=== PATIENT | male | born 1945 | race Caucasian/White ===

== ENCOUNTER 2017-11-18 15:37 | Outpatient (CLI) | payer MEDICARE, BC ==
[2017-11-18 16:21] LABS: APPEARANCE,URINE CLEAR; KETONES,URINE NEGATIVE (NEGATIVE); LEUKOCYTE ESTERASE ,URINE NEGATIVE (NEGATIVE); NITRITE,URINE NEGATIVE (NEGATIVE); PH,URINE 6.5 (4.5-8.0); PROTEIN,URINE NEGATIVE (NEGATIVE); UROBILINOGEN,URINE NORMAL MG/DL (0.0-1.0)
[2017-11-18 16:27] LABS: MEAN CORPUSCULAR HEMOGLOBIN 28.8 PG (27.0-31.0); MEAN CORPUSCULAR HGB CONC 31.1 G/DL (32.0-36.0); MEAN CORPUSCULAR VOLUME 93 FL (80-99); MEAN PLATELET VOLUME 6.8 FL (6.5-10.1); PLATELET COUNT 452 K/UL (150-450); RED BLOOD COUNT 5.31 M/UL (4.70-6.10); WHITE BLOOD COUNT 14.9 K/UL (4.8-10.8)
[2017-11-18 16:35] LABS: BACTERIA,URINE OCCASIONAL /HPF; RBC,URINE 0-2 /HPF (0 - 0); SQUAMOUS EPITHELIAL CELL,UR OCCASIONAL /LPF (NONE/OCC); WBC,URINE 0-2 /HPF (0 - 0)
--- NOTE | 2017-11-18 16:40 | Diagnostic Imaging Report ---
Indication: Chest pain. Preop. Technique: XRAY Chest 1v Comparison: None Findings: Heart size within normal limits. Mediastinal contours are sharp. The thoracic aorta is mildly tortuous. There is no focal airspace consolidation, pleural effusion or pneumothorax. There are symmetric 8 mm nodular densities projecting over the bilateral lower lungs which most likely represent nipple shadows. No acute osseous abnormality is seen. Impression: No radiographic evidence of acute cardiopulmonary disease. Symmetric 8mm nodular densities projecting over the bilateral lower lungs most likely represent nipple shadows. Repeat exam with nipple markers in place recommended for definitive assessment.
[2017-11-18 16:44] LABS: PROTHROMBIN TIME 10.6 SEC (9.30-11.50)
[2017-11-18 16:49] LABS: ALANINE AMINOTRANSFERASE 79 U/L (12-78); ALBUMIN/GLOBULIN RATIO 0.8 (1.0-2.7); ANION GAP 10 mmol/L (5-15); ASPARTATE AMINO TRANSFERASE 57 U/L (15-37); CALCIUM 8.8 MG/DL (8.5-10.1); CARBON DIOXIDE 28 MMOL/L (21-32); CHLORIDE 101 MMOL/L (98-107); CREATININE 1.4 MG/DL (0.55-1.30); POTASSIUM 4.3 MMOL/L (3.5-5.1); SODIUM 139 MMOL/L (136-145); TOTAL PROTEIN 8.5 G/DL (6.4-8.2)
[2017-11-18 17:17] LABS: BAND NEUTROPHILS % (MANUAL) 0 % (0-8); BASOPHILS % (MANUAL) 0 % (0-2); EOSINOPHILS % (MANUAL) 0 % (0-3); LYMPHOCYTES % (MANUAL) 8 % (20-45); NEUTROPHILS % (MANUAL) 87 % (45-75); PLATELET ESTIMATE INCREASED; PLATELET MORPHOLOGY NORMAL; TOTAL CELLS COUNTED 100
--- NOTE | 2017-11-20 15:08 | Cardiology Report ---
APPROVED REPORT EKG Measurement Heart [id number] Normal sinus rhythm Normal ECG
[2017-11-22] MEDS ORDERED: VALACYCLOVIR500 MG ORAL (14:30)
[2017-11-22] MEDS ORDERED: LIPITOR40 MG ORAL (14:31)
[2017-11-22] MEDS ORDERED: NORVASC10 MG ORAL (14:31)
[2017-11-22] MEDS ORDERED: ASPIR 8181 MG ORAL (14:59)
[2017-11-22] MEDS ORDERED: DIOVAN HCT 3201 EACH ORAL (15:00)
[2017-11-22] MEDS ORDERED: PERCOCET 5-3251 EACH ORAL (15:01)
[2017-11-22] MEDS ORDERED: PROSCAR5 MG ORAL (15:01)
== END 2017-11-18 17:37 | disposition home or self-care (01) ==
LOC: RAD 15:37
DX: Z01.818 Encounter for other preprocedural examination (principal); R07.9 Chest pain, unspecified
CPT/HCPCS: 36415; 71010; 80053; 81001; 85007; 85025; 85610; 85730; 93005

== ENCOUNTER 2017-11-23 06:19 | Observation (INO) | payer MEDICARE, BC ==
[~2017-11-23] VITALS: Ht 170.2 cm; Wt 81.6 kg
[2017-11-23] VITALS (18 sets, daily range): BP systolic 91–115; BP diastolic 44–73
[~2017-11-23 06:19] MED LIST: ASPIR 8181 MG ORAL; DIOVAN HCT 3201 EACH ORAL; LIPITOR40 MG ORAL; NORVASC10 MG ORAL; PERCOCET 5-3251 EACH ORAL; PROSCAR5 MG ORAL; VALACYCLOVIR500 MG ORAL
[2017-11-23] MEDS ORDERED: ceFAZolin sod 2 GM in D5W 110 ML IVPB ONE (07:00)
[2017-11-23] MEDS ORDERED: Isovue-M 300 15ml INJ ONE ×2 (07:03→07:22)
[2017-11-23] MEDS ORDERED: Dexamethasone 4mg/ml vial ONE (07:03)
[2017-11-23] MEDS ORDERED: Lidocaine 1% 10mg/ml/EPI 0.01mg/ml 50ml INJ ONE (07:03)
[2017-11-23] MEDS ORDERED: Zemuron 50mg/5ml Inj IV ONE (07:58)
[2017-11-23] MEDS ORDERED: Succinylcholine 20mg/ml 10ml vial ONE (07:58)
[2017-11-23] MEDS ORDERED: Sterile Water Irrig 1000ml IRRIG ONE (07:58)
[2017-11-23] MEDS ORDERED: Midazolam 2mg/2ml Inj ONE (07:58)
[2017-11-23] MEDS ORDERED: fentaNYL 100 mcg/2 mL IV ONE (07:58)
[2017-11-23] MEDS ORDERED: NS Irrig 1000ml ONE (07:58)
[2017-11-23] MEDS ORDERED: Propofol 200mg/20ml IV ONE (07:58)
[2017-11-23] MEDS ORDERED: Neostigmine 1mg/ml 10ml Inj ONE (07:58)
[2017-11-23] MEDS ORDERED: Glycopyrrolate 0.2mg/ml 1ml Vial ONE (07:58)
--- NOTE | 2017-11-23 08:29 | Pre-Procedure Note/Attestation ---
Pre-Procedure Note/Attestation Complete Prior to Procedure Procedure Narrative: L1 com[pression fx, intractable pain Indications for Procedure Pre-Operative Diagnosis: kyphoplasty Attestation I attest that I discussed the nature of the procedure; its benefits; risks and complications; and alternatives (and the risks and benefits of such alternatives ), prior to the procedure, with the patient (or the patient's legal client services representative). I attest that, if there was a reasonable possibility of needing a blood transfusion, the patient (or the patient's legal client services representative) was given the [facility] standardized written summary, pursuant to the [place] [employer] Blood Safety Act ([place] Health and Safety Code # 1645, as amended). I attest that I re-evaluated the patient just prior to the surgery and that there has been no change in the patient's H&P, except as documented below: FER ROMAN Nov 23, 2017 08:29
--- NOTE | 2017-11-23 08:30 | Brief Operative Note ---
Immediate Post Operative Note Operative Note Pre-op Diagnosis: L1 compression fx intractable pain Procedure: kyphoplasty Post-op Diagnosis: same as pre-op Surgeon: adina Anesthesiologist: bigg Anesthesia: general Specimen: none Complications: none Condition: stable Fluids: 600 Estimated Blood Loss: none Drains: none Implant(s) used?: Yes - pmma FER ROMAN Nov 23, 2017 08:30
[2017-11-23] MEDS ORDERED: LR 1000ml 1,000 ML IVLG SCH ×2 (09:11→09:45)
--- NOTE | 2017-11-23 09:11 | Anethesia Preoperative Eval ---
Anesthesia Pre-op PMH/ROS General Date of Evaluation: Nov 23, 2017 Time of Evaluation: 07:20 Anesthesiologist: Mane ASA Score: ASA 3 Mallampati Score Class I : Soft palate, uvula, fauces, pillars visible Class II: Soft palate, uvula, fauces visible Class III: Soft palate, base of uvula visible Class IV: Only hard plate visible Mallampati Classification: Class II Surgeon: Lam Diagnosis: L1 compression Fx Surgical Procedure: L 1 Kyphoplasty Anesthesia History: none Family History: no anesthesia problems Allergies: Coded Allergies: No Known Allergies (Unverified , 11/23/17) Past Medical History Cardiovascular: Reports: HTN, Denies: CAD, [place], valve dz, arrhythmia, other Pulmonary: Denies: asthma, COPD, ADAMARIS, other Gastrointestinal/Genitourinary: Reports: GERD, other - prostate CA, Denies: CRI, ESRD Neurologic/Psychiatric: Reports: depression/anxiety, Denies: dementia, CVA, TIA, other Endocrine: Denies: DM, hypothyroidism, steroids, other HEENT: Reports: cataract (L), cataract (R) - s/p Sx, Denies: glaucoma, [place] (L), [place] (R), other Hematology/Immune: Denies: anemia, DVT, bleeding disorder, other Musculoskeletal/Integumentary: Reports: DJD, Denies: OA, RA, DDD, edema, other PMH Narrative: as above PSxH Narrative: T&A Anesthesia Pre-op Phys. Exam Physician Exam Last Vital Signs Date Time Temp Pulse Resp B/P (MAP) Pulse Ox O2 Delivery O2 Flow Rate FiO2 11/23/17 06:52 98.5 90 20 115/73 98 Room Air Constitutional: NAD Neurologic: CN 2-12 intact Cardiovascular: RRR, no M/R/G Respiratory: CTA Gastrointestinal: S/NT/ND Airway Exam Mallampati Score: Class II MO: limited Neck: stiff ROM: limited Teeth: intact Dentures: no upper, no lower Anesthesia Pre-op A/P Labs see chart Studies Pre-op Studies: EKG - NSR Risk Assessment & Plan Assessment: ASA 3 Plan: GA with ETT prone position Status Change Before Surgery: No Pre-Antibiotics Drug: Ancef 2gr. Given Within 1 Hr of Incision: Yes Time Given: 07:52 JOSE JUAN WOOD M.D. Nov 23, 2017 09:11
[2017-11-23] MEDS ORDERED: DiphenhydrAMINE 50mg/ml Inj IVP PRN ×2 (09:15→10:00)
[2017-11-23] MEDS ORDERED: Hydromorphone 0.5mg/0.5ml inj IVP PRN (09:15)
[2017-11-23] MEDS ORDERED: Midazolam 2mg/2ml Inj IVP PRN ×2 (09:15→10:00)
[2017-11-23] MEDS ORDERED: Ketorolac 30mg Inj IV PRN ×2 (09:15→09:45)
[2017-11-23] MEDS ORDERED: Metoclopramide 10mg/2ml Inj IVP PRN ×4 (09:15→13:30)
[2017-11-23] MEDS ORDERED: D5 1/2NS 1,000 ML IV SCH ×2 (09:30→13:00)
[2017-11-23] MEDS ORDERED: Norco 5mg/325mg tab ORAL PRN ×2 (09:30→13:00)
[2017-11-23] MEDS ORDERED: HYDROmorphone 1mg/ml Carpuject SUBQ PRN ×2 (09:30→13:00)
[2017-11-23] MEDS ORDERED: Tylenol #3 tab (300mg/30mg) ORAL PRN ×2 (09:30→09:45)
--- NOTE | 2017-11-23 09:51 | Immediate Post-Op Evaluation ---
Immediate Post-Op Evalulation Immediate Post-Op Evalulation Procedure: L1 Kyphoplasty Date of Evaluation: Nov 23, 2017 Time of Evaluation: 09:50 IV Fluids: 800 Blood Products: none Estimated Blood Loss: min Urinary Output: none Blood Pressure Systolic: 96 Blood Pressure Diastolic: 58 Pulse Rate: 102 Respiratory Rate: 20 O2 Sat by Pulse Oximetry: 99 Temperature (Fahrenheit): 98.3 Pain Score (1-10): 2 Nausea: No Vomiting: No Complications NONE Patient Status: reacts, patent, extubated, none Hydration Status: adequate JOSE JUAN WOOD M.D. Nov 23, 2017 09:51
[2017-11-23] MEDS: Hydromorphone 0.5mg/0.5ml inj IVP PRN ×3 (09:59→10:22)
--- NOTE | 2017-11-23 13:51 | Diagnostic Imaging Report ---
Indication: Back pain. Vertebral fracture Comparison: None Findings: Fluoroscopic views of the lumbar spine were obtained. Fluoroscopically obtained images during kyphoplasty within what appears to be the upper part of the lumbar spine. IMPRESSION: Intraoperative imaging
--- NOTE | 2017-11-23 15:15 | Operative Note - Dictated ---
DATE OF OPERATION: 11/23/2017 SURGEON: Garfield Fritz M.D. [employer] AGENT: None. ANESTHESIOLOGIST: Michael Gilliam M.D. ANESTHESIA TYPE: General endotracheal anesthesia. PREOPERATIVE DIAGNOSIS: L1 compression fractures with intractable pain. POSTOPERATIVE DIAGNOSIS: L1 compression fractures with intractable pain. PROCEDURE: 1. Kyphoplasty L1. 2. Use of fluoroscopy. 3. Cement augmentation L1. 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 He was placed into a brace, but despite this had severe and intractable pain. Therefore, surgical intervention in the form of kyphoplasty was recommended. RISK NOTE: The patient was explained in detail the risks and benefits of procedure to include, but not be limited to those of bleeding, infection, damage to nerves, vessels, tendons, anesthetic risk, allergic reaction, aspiration, and possibly . The patient understood and wished to proceed. OPERATIVE PROCEDURE IN DETAIL: The patient was taken to the operative suite. After positive identification was made, general endotracheal anesthesia was induced. He was then turned prone onto a Vincent frame. All bony prominences were well padded. Biplanar fluoroscopy was brought into place and visualization of the L1 fracture was confirmed. The back was then prepped and draped in the usual sterile fashion. The patient then received 3 mL of lidocaine with epinephrine at both incision sites. A stab wound was made with an 11 blade scalpel on the right. A trocar was then delivered to the junction of the pedicle/transverse process. Under fluoroscopic guidance, the cannula was placed into the pedicle on the right side. Once appropriate cannula placement was made, the trocar portion was removed. A drill was inserted and a kyphoplasty balloon was inserted. This was then repeated on the left side as well. At this time, under fluoroscopic guidance, inflation of the balloons was achieved to have 70% faith of vertebral heights. At this time, the balloons were deflated and once the appropriate viscosity of the cement was obtained, the patient then received 4.1 mL of cement on the right and 4.6 mL of cement on the left. The cannulas were then removed once the cement was fully hardened. The skin was then repaired using 5-0 Monocryl. The patient overall tolerated the procedure well and at time of this dictation, the patient was awaiting extubation. Garfield Doc Fritz DR: JEFFREY JOB#: [id number] CC:
--- NOTE | 2017-11-24 10:35 | Discharge Summary ---
Discharge Summary Hospital Course Date of Admission Nov 23, 2017 at 12:46 Date of Discharge Nov 23, 2017 at 19:50 Admitting Diagnosis HPI Willie Gates is a 71 year old male who was admitted on Nov 23, 2017 at 12:46 for L1 Wedge Compresion Fracture Hospital Course [id number] Discharge Discharge Disposition Patient was discharged to Home (01) Discharge Diagnoses: Ana Monroe NP Nov 24, 2017 10:35
--- NOTE | 2017-11-24 22:15 | Discharge Summary 2 SIG ---
DATE OF ADMISSION: 11/23/2017 DATE OF DISCHARGE: 11/23/2017 BRIEF HOSPITAL COURSE: The patient is a 71-year-old male, who has L1 compression fracture with intractable pain. He was placed in a brace, however, despite this had severe intractable pain. The patient has osteoporotic compression fracture at L1. He was admitted on 11/23/2017 and underwent kyphoplasty on L1. He tolerated procedure well, postoperatively he was admitted under observation and was given pain management. He was eating well and ambulating well. He was eventually discharged home. FINAL DIAGNOSES: 1. L1 osteoporotic compression fracture with intractable pain. 2. Status post kyphoplasty, refer to operative report. DISPOSITION: The patient was discharged home. DISCHARGE MEDICATIONS: Refer to medication list. DISCHARGE INSTRUCTIONS: Follow up with Surgery in a week. Garfield Fritz M.D. I have been assigned to dictate discharge summary on this account and I was not involved in the patient's management. Ana Monroe N.P. DR: Bertha JOB#: [id number] CC: SERENA
[2017-11-25 09:12] VITALS: BP 113/62
--- NOTE | 2017-11-25 09:12 | 48 Hour Post Anesthesia Eval ---
Post Anesthesia Evaluation Procedure: L1 Kyphoplasty Date of Evaluation: Nov 23, 2017 Time of Evaluation: 12:30 Blood Pressure Systolic: 113 0: 62 Pulse Rate: 70 Respiratory Rate: 20 Temperature (Fahrenheit): 98 O2 Sat by Pulse Oximetry: 98 Airway: patent Nausea: No Vomiting: No Pain Intensity: 2 Hydration Status: adequate Cardiopulmonary Status: at baseline Mental Status/LOC: patient returned to baseline Post-Anesthesia Complications: 0 Follow-up care needed: ready to discharge REJI ABAD M.D. Nov 25, 2017 09:12
== END 2017-11-23 19:50 | disposition home or self-care (01) ==
LOC: SUR 06:19 → EDSTATUS 07:30 → 3E 12:46 → INTOOBSV 12:46
DX: M80.08XA Age-related osteoporosis with current pathological fracture, vertebra(e), initial encounter for fracture (principal); I10 Essential (primary) hypertension; K21.9 Gastro-esophageal reflux disease without esophagitis; F41.9 Anxiety disorder, unspecified; F32.9 Major depressive disorder, single episode, unspecified; K57.90 Diverticulosis of intestine, part unspecified, without perforation or abscess without bleeding; Z85.46 Personal history of malignant neoplasm of prostate; Z82.49 Family history of ischemic heart disease and other diseases of the circulatory system; Z82.3 Family history of stroke; X58.XXXA Exposure to other specified factors, initial encounter; Y93.9 Activity, unspecified; Y92.9 Unspecified place or not applicable
CPT/HCPCS: 22514; 72020; 76001; 87081; 96360; G0378 ×2; G0379; J0330; J0690; J1100; J1170; J1200; J1885; J2250; J2405; J2704; J2710; J3010; Q9967; 94003; 94150